=== PATIENT | female | born 1950 | race Caucasian/White ===

== ENCOUNTER 2021-09-26 09:34 | Emergency (ER) | payer MEDICARE, SELFPAY ==
--- NOTE | ~2021-09-26 | XR_ITS ---
XR chest 2V DATE: 09/26/2021 10:37 INDICATION: Cough and wheezing for 10 days. Nonsmoker. TECHNIQUE: 2 views COMPARISON: None FINDINGS: Heart size is borderline. There is mild aortic calcification and unfolding. No pulmonary infiltrate or consolidation, pleural effusion or pulmonary vascular congestion or pneumo thorax. Diffuse idiopathic skeletal hyperostosis of the thoracic spine. Degenerative change of the lumbar spine. IMPRESSION: Borderline heart size Aortic atherosclerosis No active pulmonary disease Reviewed, dictated and finalized at location A. [employer]
[2021-09-26 09:48] VITALS: BP 147/90; PULSE 94; RESP 16; TEMP 36.8; O2SAT 99
--- NOTE | 2021-09-26 10:26 | ED.URI ---
HPI - URI/Sore Throat General Chief Complaint: Upper Respiratory Infection Stated Complaint: sob Time Seen by Provider: 09/26/21 10:16 Source: patient and RN notes reviewed Mode of arrival: ambulatory Limitations: no limitations History of Present Illness HPI Narrative: Patient presents today with a 10-day history of cough, congestion, and wheezing. Denies sore throat, fever, or any additional symptoms. History of pneumonia last year and was subsequently diagnosed with asthma. She has an albuterol inhaler that she has been using, but does help slightly when she uses it. States she feels like she needs it more frequently. Her doctor called her in a Z-Marc which she finished yesterday without any relief of symptoms. MD elicited complaint: cough Related Data Home Medications Medication Instructions Recorded Confirmed albuterol sulfate 2 puff INHALATION PRN PRN 09/26/21 09/26/21 levothyroxine 100 mcg PO DAILY 09/26/21 09/26/21 Allergies Allergy/AdvReac Type Severity Reaction Status Date / Time No Known Allergies Allergy Verified 09/26/21 10:38 Review of Systems Review of Systems: CONSTITUTIONAL: Denies body aches, fever, chills, or sweats. EYES: Denies visual changes, redness, or discharge. ENT: Denies rhinorrhea, sore throat, or otalgia.+ Congestion CARDIOVASCULAR: Denies chest pain, palpitations, or edema. RESPIRATORY: + Cough, shortness of breath, wheezing GASTROINTESTINAL: Denies abdominal pain, nausea, vomiting, or diarrhea. GENITOURINARY: Denies dysuria or hematuria. SKIN: Denies rash, itching, or wounds. MUSCULOSKELETAL: Denies back pain, joint pain, or myalgia. NEUROLOGIC: Denies headache, numbness, tingling, or weakness. PSYCH: Denies depression or anxiety. [facility] Past Medical History Medical History (Updated 09/26/21 @ 11:13 by Earnestine Sweet, [employer], ) Asthma Comments At time of signature, I have reviewed and agree with nursing past medical, surgical, social and family history unless otherwise noted. Please see nursing chart for further information. There is no relevant family history pertinent to the presenting complaint Exam Narrative: GENERAL: Mildly ill-appearing, well-nourished, and in no acute distress. HEAD: Normocephalic, atraumatic. EYES: EOMI. No redness or drainage. Conjunctivae normal. ENT: Mucous membranes pink and moist. Nares clear. No rhinorrhea. TMs normal bilaterally. Throat normal. Uvula midline. NECK: Normal AROM. Supple. No lymphadenopathy. CHEST: Audible wheezes from across the room. Inspiratory and expiratory wheezes with auscultation. Patient still able to speak in complete sentences. HEART: Regular rate and rhythm. No murmur appreciated. Normal peripheral pulses. EXTREMITIES: Normal range of motion. No edema. SKIN: Warm, dry, no rash. Capillary refill normal. Normal skin turgor. NEURO: No focal deficits. Alert and oriented x3. Gait steady. PSYCH: Normal affect. No signs of depression or anxiety. Course Course Emergency Course: 1117- Patient states she is feeling much better after the Duoneb. Wheezing is much improved. Vital Signs Vital signs: Vital Signs Temperature 98.2 F 09/26/21 09:48 Pulse Rate 94 09/26/21 09:48 Respiratory Rate 16 09/26/21 09:48 Blood Pressure 147/90 H 09/26/21 09:48 Pulse Oximetry 99 09/26/21 09:48 Temperature 98.2 F 09/26/21 09:48 Pulse Rate 94 09/26/21 09:48 Respiratory Rate 16 09/26/21 09:48 Blood Pressure 147/90 H 09/26/21 09:48 Pulse Oximetry 99 09/26/21 09:48 Reviewed. Pt has been instructed to follow up with her PCP regarding her elevated blood pressure today. MDM - URI/Sore Throat Differential Diagnosis Differential diagnosis: Likely upper respiratory infection, bronchitis and other (Pneumonia, asthma exacerbation) Imaging Data Radiologist's impression: ITS Impressions Chest X-Ray 09/26/21 10:37 IMPRESSION: Borderline heart size Aortic atherosclerosis No active pulmonary disea
[2021-09-26] MEDS: IPRATROPIUM BR 0.02% INH SOLN 0.5 MG/2.5 ML VIAL INHALATION (10:42)
[2021-09-26] MEDS: ALBUTEROL SULFATE NEB 2.5 MG/3 ML INH INHALATION (10:42)
== END 2021-09-26 11:25 | disposition home or self-care (01) ==
PROVIDERS: Emergency Provider Nurse Practitioner
DX: J45.901 Unspecified asthma with (acute) exacerbation (principal)
CPT/HCPCS: 71046; 94640; 99213; G0463